=== PATIENT | male | born 1985 | race Two or more races ===

== ENCOUNTER 2024-09-13 08:18 | Emergency (ER) | payer OTHER, MEDICAID ==
[~2024-09-13] VITALS: Ht 167.6 cm; Wt 112.3 kg
--- NOTE | 2024-09-13 09:07 | ED.PDOC ---
Eye-HPI HPI Comments Portions of this chart may have been created with an modal fluency direct voice recognition software. Occasional wrong-word or "sound-alike" substitutions may have occurred due to the inherent limitations of voice recognition software. Please read the chart carefully and recognize, using context, where these substitutions have occurred. Child presents with a chief complaint of mouth pain x1 day. Pain is located to tooth 11 and 12 Seen by dentist yesterday and has f/u sep 22 for extraction Taking amox on day 3 and tylenol for pain Described as throbbing Taken antibiotics and ibuprofen with some improvement Able to eat drink denies chest pain shortness of breath Chief Complaint: Tooth Pain Time Seen by MD: 08:41 Primary Care Provider: SRINIVAS Allergies: Coded Allergies: NO KNOWN ALLERGIES (Unverified , 09/13/24) Mode of Arrival: Ambulatory Family History Family History: Reviewed,noncontributory to illness Social History Smoker: Non-Smoker Alcohol: Denies ETOH Use Drugs: Denies Drug Use All Other Systems: Reviewed and Negative (per HPI) Physical Exam General Appearance: No Apparent Distress, Normal HEENT: Normal ENT Inspection, Pharynx Normal, TMs Normal, Other (dental carries) Neck: Full Range of Motion, Non-Tender, Normal, Normal Inspection Respiratory: Chest Non-Tender, Lungs Clear, No Accessory Muscle Use, No Respiratory Distress, Normal Breath Sounds Cardiovascular: No Edema, No JVD, No Murmur, No Gallop, Normal Peripheral Pulses, Regular Rate/Rhythm Breast Exam: Deferred Gastrointestinal: No Organomegaly, Non Tender, No Pulsatile Mass, Normal Bowel Sounds, Soft Genitalia: Deferred Pelvic: Deferred Rectal: Deferred Extremities: No calf tenderness, Normal capillary refill, Normal inspection, Normal range of motion, Non-tender, No pedal edema Musculoskeletal : Apperance: Normal Neurologic: Alert, 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 Was a procedure done?: No EENT DIFF Eye: Other X-Ray, Labs, Meds, VS Vital Signs Date Time Temp Pulse Resp B/P (MAP) Pulse Ox O2 Delivery O2 Flow Rate FiO2 09/13/24 09:17 93 18 95 Room Air 09/13/24 09:17 97.8 93 18 139/105 (116) 95 97.8 09/13/24 08:40 97.8 93 18 139/105 (116) 95 X-Ray, Labs, Meds, VS Comment Patient is stable for discharge at this time. External notes reviewed. Follow-up with PCP in 2 to 3 days Patient verbalized understanding and agreed to treatment plan Vital signs stable, afebrile, no acute distress noted Patient ambulatory with strong steady gait Advised to return precautions for any new or worsening symptoms, return to ER immediately for re-evaluation Patient is aware that the purpose of this visit was for an acute medical emergency requiring emergent stabilization. Chronic conditions, including malignancies have not been ruled out. Patient is instructed to follow up with PCP as directed and discharge instructions for continued care and workup. If unable to arrange follow-up, patient is to return to the emergency department for reassessment. Patient (parent or legal guardian if applicable) was given verbal and written discharge instructions and acknowledges understanding. Time of 1ST Reevaluation: 10:14 Reevaluation 1ST: Improved Patient Education/Counseling: Diagnosis, Treatment Family Education/Counseling: Diagnosis, Treatment Departure 1 Departure Time of Disposition: 10:15 Impression: Primary Impression: Tooth pain Disposition: 01 HOME / SELF CARE / HOMELESS Condition: Stable e-Prescriptions Hydrocodone-Acetaminophen (Hydrocodone Bitartrate/AC 5-325 mg) 1 Tab Tab 1 TAB PO Q6HP PRN for 10 Days, #40 TAB 0 Refills Prov: ANTONIO VASQUEZ NP 09/13/24 Critical Care Note Critical Care Time?: No Stability Stability form required: No Heart Score Heart Score: Heart Score Response (Comments) Value History N/A 0 EKG N/A 0 Age N/A 0 Risk Factors N/A 0 Troponin N/A 0 Total 0 ANTONIO VASQUEZ NP Sep 13, 2024 09:07
[2024-09-13 09:17] VITALS: BP 139/105; PULSE 93; RESP 18; TEMP 97.8; O2SAT 95
[2024-09-13] MEDS ORDERED: HYDR-4902 PO (10:16)
== END 2024-09-13 10:17 | disposition home or self-care (01) ==
LOC: ER 08:18
DX: K08.89 Other specified disorders of teeth and supporting structures (principal); K13.79 Other lesions of oral mucosa